=== PATIENT | female | born 1985 | race Caucasian/White ===

== ENCOUNTER 2017-06-28 22:18 | Emergency (ER) | payer MEDICAID, SELFPAY ==
[2017-06-28 22:21] VITALS: BP 161/91; PULSE 63; RESP 16; TEMP 36.8; O2SAT 98; BMI 46.2
--- NOTE | 2017-06-28 22:39 | HMH.EDBACK ---
ED Disposition Clinical Impression: Back pain Qualifiers: Back pain location: back pain in unspecified location Chronicity: chronic Back pain laterality: midline Qualified Code(s): M54.9 - Dorsalgia, unspecified; G89.29 - Other chronic pain Disposition: Home, Self-Care Condition on Discharge: Good Instructions: DI for Chronic Pain -- Adult, DI for Thoracic Back Pain Additional Instructions: Additional instructions for BACK PAIN: See your physician as soon as possible for further evaluation. Return immediately if back pain becomes intolerable, or if fever, numbness or weakness of your legs, loss of control of your bowels or bladder. Prescriptions: Methocarbamol [Robaxin 750mg Tab] 750 mg PO QIDP PRN #20 tab PRN Reason: Muscle Spasm Naproxen Sodium [Naproxen ER 500mg Tab] 500 mg PO BIDP PRN #20 tab PRN Reason: Moderate Pain - Critical Care Critical Care Time: No Attestation: On , the high probability of a clinically significant, sudden or life threatening deterioration of the following system(s) required my full and direct attention, intervention and personal management. The time I documented below is in addition to time spent performing reported procedures but includes the following listed in this critical care notation. Medical Decision Making Vital Signs: 06/28/17 22:21 Temperature 98.3 F Temperature Source Oral Pulse Rate [Right Brachial] 63 Respiratory Rate 16 Blood Pressure [Right Arm] 161/91 Blood Pressure Mean [Right Arm] 114 Blood Pressure Source [Right Arm] Automatic Cuff Blood Pressure Position [Right Arm] Sitting 02 Sat by Pulse Oximetry 98 Oxygen Delivery Method Room Air - Herb Inquiry Pt receiving controlled substance: No Herb was queried for this patient: Yes Reference #:: [id number] Comment: 10 rxs. last rx fioricet on 03/11/17 [facility] History I have reviewed the patient's past medical history: Yes - *Social History Smoking Status: Current every day smoker Tobacco Type: cigarettes # Packs/Day (cigarettes): 1 Alcohol Intake: never - Psychiatric History Expresses thoughts of harming self/others: None Suicide Plan Description: No Plan ROS Obtained: Yes All systems reviewed & no additional complaints - Constitutional Constitutional: Denies fever(s) - Gastrointestinal Gastrointestingal: Denies: as per HPI - Genitourinary Male Genitourinary: Denies difficulty urinating - Musculoskeletal Musculoskeletal: Reports back pain - Neurologic Neurologic: Denies numbness, Denies weakness Physical Exam - General General appearance: alert, in no apparent distress - Chest Chest inspection: Present: normal inspection - Respiratory Respiratory exam: Absent: respiratory distress - Cardiovascular Cardiovascular exam: Present: regular rate, normal rhythm - Back Exam Back exam: Present: normal inspection, tenderness (Entire thoracic spine) - Neurological Exam Neurological exam: Present: alert, normal gait. Absent: motor sensory deficit - Psychiatric Psychiatric exam: Present: normal affect, normal mood Back Pain HPI - General Chief Complaint: Back Pain/Injury Stated Complaint: back pain for two weeks Mode of Arrival: Ambulatory Limitations: No Limitations Description of Symptoms (Recalled from ER Triage Doc. by RN): UPPER BACK PAIN FOR 2 WEEKS - History of Present Illness HPI Narrative: She complains of back pain all the way from the base of her neck down to her lower lumbar area constantly for about 10 years. She says it started when her chest got bigger after being with her child. She has seen her primary care physician and chiropractors for. She has had more than one set of x-rays, the last about a year ago, which have been negative. She says she has never been on medications for it. She says the pain is worse for the past 2 weeks and she has not been able to get in to see her primary care provider. She is currently staying out of town here taking c
--- NOTE | 2017-06-28 22:43 | ED_ITS ---
ED Disposition Clinical Impression: Back pain Qualifiers: Back pain location: back pain in unspecified location Chronicity: chronic Back pain laterality: midline Qualified Code(s): M54.9 - Dorsalgia, unspecified; G89.29 - Other chronic pain Disposition: Home, Self-Care Condition on Discharge: Good Instructions: DI for Chronic Pain -- Adult, DI for Thoracic Back Pain Additional Instructions: Additional instructions for BACK PAIN: See your physician as soon as possible for further evaluation. Return immediately if back pain becomes intolerable, or if fever, numbness or weakness of your legs, loss of control of your bowels or bladder. Prescriptions: Methocarbamol [Robaxin 750mg Tab] 750 mg PO QIDP PRN #20 tab PRN Reason: Muscle Spasm Naproxen Sodium [Naproxen ER 500mg Tab] 500 mg PO BIDP PRN #20 tab PRN Reason: Moderate Pain - Critical Care Critical Care Time: No Attestation: On , the high probability of a clinically significant, sudden or life threatening deterioration of the following system(s) required my full and direct attention, intervention and personal management. The time I documented below is in addition to time spent performing reported procedures but includes the following listed in this critical care notation. Medical Decision Making Vital Signs: 06/28/17 22:21 Temperature 98.3 F Temperature Source Oral Pulse Rate [Right Brachial] 63 Respiratory Rate 16 Blood Pressure [Right Arm] 161/91 Blood Pressure Mean [Right Arm] 114 Blood Pressure Source [Right Arm] Automatic Cuff Blood Pressure Position [Right Arm] Sitting 02 Sat by Pulse Oximetry 98 Oxygen Delivery Method Room Air - Herb Inquiry Pt receiving controlled substance: No Herb was queried for this patient: Yes Reference #:: [id number] Comment: 10 rxs. last rx fioricet on 03/11/17 [facility] History I have reviewed the patient's past medical history: Yes - *Social History Smoking Status: Current every day smoker Tobacco Type: cigarettes # Packs/Day (cigarettes): 1 Alcohol Intake: never - Psychiatric History Expresses thoughts of harming self/others: None Suicide Plan Description: No Plan ROS Obtained: Yes All systems reviewed & no additional complaints - Constitutional Constitutional: Denies fever(s) - Gastrointestinal Gastrointestingal: Denies: as per HPI - Genitourinary Male Genitourinary: Denies difficulty urinating - Musculoskeletal Musculoskeletal: Reports back pain - Neurologic Neurologic: Denies numbness, Denies weakness Physical Exam - General General appearance: alert, in no apparent distress - Chest Chest inspection: Present: normal inspection - Respiratory Respiratory exam: Absent: respiratory distress - Cardiovascular Cardiovascular exam: Present: regular rate, normal rhythm - Back Exam Back exam: Present: normal inspection, tenderness (Entire thoracic spine) - Neurological Exam Neurological exam: Present: alert, normal gait. Absent: motor sensory deficit - Psychiatric Psychiatric exam: Present: normal affect, normal mood Back Pain HPI - General Chief Complaint: Back Pain/Injury Stated Complaint: back pain for two weeks Mode of Arrival: Ambulatory Limitations: No Limitations Description of Symptoms (Recalled from ER Triage Doc. by RN): UPPER BACK PAIN FOR 2 WEEKS - History of Present Illness HPI Narrative:
== END 2017-06-28 22:58 | disposition home or self-care (01) ==
PROVIDERS: Emergency Provider Emergency Medicine; Family Provider Family Medicine
DX: M54.9 Dorsalgia, unspecified (principal); G89.29 Other chronic pain; F17.210 Nicotine dependence, cigarettes, uncomplicated; Z91.040 Latex allergy status; I10 Essential (primary) hypertension; Z88.6 Allergy status to analgesic agent; F41.8 Other specified anxiety disorders; Z90.49 Acquired absence of other specified parts of digestive tract
CPT/HCPCS: 96372; 99282

== ENCOUNTER 2017-08-07 18:43 | Emergency (ER) | payer MEDICAID, SELFPAY ==
[2017-08-07 19:04] VITALS: BP 125/81; PULSE 113; RESP 20; TEMP 37.1; O2SAT 95; BMI 43.7
--- NOTE | 2017-08-07 19:18 | HMH.EDUTC ---
[facility] – [place] Disposition Clinical Impression: Otitis media Disposition: Home, Self-Care Condition on Discharge: Good Instructions: DI for Ear Pain-Adult, Sore Throat, DI for Otitis Media (Middle Ear Infection)-Child Additional Instructions: * Monitor Temp. Tylenol and/or Ibuprofen as needed. ER if fever is no less than 101 despite alternating Tylenol and Ibuprofen * Encourage fluids, water, Gatorade, powerade, pedialyte if /toddler/or child * Warm salt water gargles for throat irritation *Warm fluids *Sore throat lozenges *Sleep elevated *humidifier or vaporizer Lots of rest Increase fluids, water, Gatorade, powerade Follow up IMMEDIATELY for new or worsening of symptoms OR no noticeable improvement over the next 48-72 hours. 911 immediately for any life threatening symptoms such as chest pain or difficulty breathing Prescriptions: Brompheniramine/Pseudoephed/Dm [Bromfed DM Cough Syrup 5mL] 10 ml PO Q4HP PRN #350 ml PRN Reason: Cough Amoxicillin [Amoxicillin 500mg Cap] 500 mg PO TID #30 cap Referrals: Shaheed Shane [Primary Care Provider] - Forms: Work/School Release Time of Disposition: 19:46 Medical Decision Making - Medical Records Medical records reviewed: Yes: I reviewed the patient's medical records. Vital Signs: 08/07/17 19:04 Temperature 98.7 F Temperature Source Temporal Artery Scan Pulse Rate [Right] 113 H Respiratory Rate 20 Blood Pressure [Right Arm] 125/81 Blood Pressure Mean [Right Arm] 95 Blood Pressure Source [Right Arm] Automatic Cuff Blood Pressure Position [Right Arm] Sitting 02 Sat by Pulse Oximetry 95 Oxygen Delivery Method Room Air - Herb Inquiry Pt receiving controlled substance: No Herb was queried for this patient: No [facility] [place] HPI - General Stated complaint: Upper Resp Mode of Arrival: Ambulatory Source of Information: Patient Limitations: No Limitations Description of Symptoms (Recalled from Triage Doc. by RN): COUGH, CONGESTION, FEVER HEENT Symptoms (Recalled from RN notes): Yes Resp Symptoms (Recalled from RN notes): No Skin Symptoms (Recalled from RN notes): No MS Symptoms (Recalled from RN notes): No Functional Status (Recalled from RN notes): N - History of Present Illness Provider Complaint: Patient state that for last couple of days she has been having pain in left ear, cough, sore throat and noticed that she had a small sore like area on her right breast that she has been treating with tripple antibiotic ointment States that pain in left ear has continued to get worse and hurts down into her throat when she swallows - Related Data Previous Rx's Medication Instructions Recorded Methocarbamol [Robaxin 750mg Tab] 750 mg PO QIDP PRN #20 tab 06/28/17 Naproxen Sodium [Naproxen ER 500mg 500 mg PO BIDP PRN #20 tab 06/28/17 Tab] Amoxicillin [Amoxicillin 500mg 500 mg PO TID #30 cap 08/07/17 Cap] Brompheniramine/Pseudoephed/Dm 10 ml PO Q4HP PRN #350 ml 08/07/17 [Bromfed DM Cough Syrup 5mL] Allergies Allergy/AdvReac Type Severity Reaction Status Date / Time Fish Containing Products Allergy Severe S-SWELLS-OR Verified 06/28/17 22:27 [From SEAFOOD (F/D)] AL/THROAT latex [LATEX] Allergy Intermediate I-RASH Verified 06/28/17 22:27 morphine [MORPHINE] Allergy Intermediate I-ITCHING Verified 06/28/17 22:27 venom-honey bee Allergy Unknown I-RASH Verified 06/28/17 22:27 [BEE VENOM (HONEY BEE)] From SEAFOOD (F/D) Allergy Severe S-SWELLS-OR Uncoded 05/19/17 14:42 AL/THROAT - Worker's Comp Is this a Worker's Comp case?: No H History I have reviewed the patient's past medical history: Yes - Social History Smoking Status: Current every day smoker Tobacco Type: cigarettes # Packs/Day (cigarettes): 1 Alcohol Intake: never - Psychiatric History Expresses thoughts of harming self/others: None Suicide Plan Description: No Plan ROS Obtained: Yes All systems reviewed & no additional complaints - Constitutional Constitutional
[2017-08-07 19:43] VITALS: BP 122/80; PULSE 90; RESP 20; TEMP 37.1
== END 2017-08-07 19:49 | disposition home or self-care (01) ==
PROVIDERS: Emergency Provider Nurse Practitioner; Family Provider Family Medicine; PCP Family Medicine
DX: H66.92 Otitis media, unspecified, left ear (principal); F17.210 Nicotine dependence, cigarettes, uncomplicated; Z88.6 Allergy status to analgesic agent; Z91.040 Latex allergy status
CPT/HCPCS: 99202

== ENCOUNTER 2017-08-21 21:10 | Emergency (ER) | payer MEDICAID, SELFPAY ==
[2017-08-21 21:51] VITALS: BP 000/00; PULSE 109; RESP 20; TEMP 36.8; O2SAT 97; BMI 46.2
[2017-08-21 22:10] VITALS: BP 115/70; PULSE 102; RESP 20
[2017-08-21 23:35] VITALS: BP 120/81; PULSE 97; RESP 18; TEMP 36.6
== END 2017-08-21 23:35 | disposition left against medical advice (07) ==
LOC: ER 21:22
PROVIDERS: Emergency Provider Emergency Medicine; Family Provider Family Medicine; PCP Family Medicine
DX: Z53.29 Procedure and treatment not carried out because of patient's decision for other reasons (principal)
CPT/HCPCS: 99211; 99282

== ENCOUNTER 2018-10-26 20:26 | Emergency (ER) | payer OTHER, MEDICAID, SELFPAY ==
[2018-10-26 20:50] VITALS: BP 148/94; PULSE 89; RESP 18; TEMP 37.3; O2SAT 96; BMI 50.7
--- NOTE | 2018-10-26 21:32 | HMH.EDUTC ---
[facility] [place]ression: Anxiety Disposition: Home, Self-Care Condition on Discharge: Good Instructions: DI for Anxiety -- Adult, Anxiety Disorders, Generalized Anxiety Disorder, Anxiety and Panic Attacks (Alternative Therapy) Additional Instructions: Find a hobby to help you release anxiety, sometimes hobbies that require you to work with your hands and mind can help to control and prevent panic attacks *Take medication as prescribed for anxiety Manage or prevent a panic attack: Manage stress. Stress can trigger a panic attack. Ways to lower your stress level include yoga, meditation, and talking to someone about the stress in your life. Exercise as directed. Exercise can reduce stress and help you sleep better. Try to get at least 30 minutes of physical activity on most days of the week. Your healthcare provider can help you create an exercise plan. Set a sleep schedule. Too little sleep can increase anxiety. Go to bed at the same time each night and wake up at the same time each morning. Keep your room quiet and free from distractions, such as a television or computer. Eat a variety of healthy foods. Healthy foods include fruits, vegetables, low-fat dairy products, lean meats, fish, and beans. Limit sugar. Sugar can increase your symptoms. Do not have foods or drinks that contain caffeine. These include coffee, tea, soda, energy drinks, and chocolate. Caffeine can make anxiety worse or trigger a panic attack. Limit alcohol. You may think alcohol makes you calmer, but it is not a safe or effective way to control anxiety. Alcohol can increase anxiety if you drink large amounts or drink often. Ask your healthcare provider how much alcohol is safe for you to drink. A drink of alcohol is 12 ounces of beer, 5 ounces of wine, or 1? ounces of liquor. Do not smoke. Nicotine and other chemicals in cigarettes and cigars can increase anxiety. Ask your healthcare provider for information if you currently smoke and need help to quit. E-cigarettes or smokeless tobacco still contain nicotine. Talk to your healthcare provider before you use these products. Follow up with family doctor if you continue to have panic attacks not easily controlled with your prescribed medication Straight to ER if any chest pain, shortness of breath or any life threatening symptoms Referrals: Shaheed Shane [Primary Care Provider] - Medical Decision Making - Herb Inquiry Pt receiving controlled substance: No Herb was queried for this patient: No Vital Signs: 10/26/18 20:50 Temperature 99.1 F Temperature Source Oral Pulse Rate [Right Brachial] 89 Respiratory Rate 18 Blood Pressure [Right Arm] 148/94 H Blood Pressure Mean [Right Arm] 112 Blood Pressure Source [Right Arm] Automatic Cuff Blood Pressure Position [Right Arm] Sitting 02 Sat by Pulse Oximetry 96 Oxygen Delivery Method Room Air - Reevaluation(s) Time: 21:42 Reevaluation #1: Patient state that she took medication prior to arrival and no longer feeling like she is having a panic attack states that she is feeling better after arrival [facility] [place] - General Stated complaint: sOB, POSSIBLE PANIC ATTACK Time Seen by Provider: 10/26/18 21:32 Mode of Arrival: Family Vehicle Source of Information: Patient Limitations: No Limitations Description of Symptoms (Recalled from Triage Doc. by RN): c/o panic attacks that have worsened since 11:00 HEENT Symptoms (Recalled from RN notes): No Resp Symptoms (Recalled from RN notes): No Skin Symptoms (Recalled from RN notes): No MS Symptoms (Recalled from RN notes): No Functional Status (Recalled from RN notes): n/a - History of Present Illness Provider Complaint: Patient states that earlier today she had to take a bath and there was alot of people at her house and she had to shut the door State that it caused her to have anxiety attack State that she took her medication but it didn't help so this evening she felt a little better then felt like
--- NOTE | 2018-10-26 21:35 | ED_ITS ---
[facility] [place]: Anxiety Disposition: Home, Self-Care Condition on Discharge: Good Instructions: DI for Anxiety -- Adult, Anxiety Disorders, Generalized Anxiety Disorder, Anxiety and Panic Attacks (Alternative Therapy) Additional Instructions: Find a hobby to help you release anxiety, sometimes hobbies that require you to work with your hands and mind can help to control and prevent panic attacks *Take medication as prescribed for anxiety Manage or prevent a panic attack: * Manage stress. Stress can trigger a panic attack. Ways to lower your stress le helga include yoga, meditation, and talking to someone about the stress in your life. * Exercise as directed. Exercise can reduce stress and help you sleep better. Try to get at least 30 minutes of physical activity on most days of the week. Your healthcare provider can help you create an exercise plan. * Set a sleep schedule. Too little sleep can increase anxiety. Go to bed at the same time each night and wake up at the same time each morning. Keep your room quiet and free from distractions, such as a television or computer. * Eat a variety of healthy foods. Healthy foods include fruits, vegetables, low- fat dairy products, lean meats, fish, and beans. Limit sugar. Sugar can increase your symptoms. * Do not have foods or drinks that contain caffeine. These include coffee, tea, soda, energy drinks, and chocolate. Caffeine can make anxiety worse or trigger a panic attack. * Limit alcohol. You may think alcohol makes you calmer, but it is not a safe or effective way to control anxiety. Alcohol can increase anxiety if you drink large amounts or drink often. Ask your healthcare provider how much alcohol is safe for you to drink. A drink of alcohol is 12 ounces of beer, 5 ounces of wi ne, or 1? ounces of liquor. * Do not smoke. Nicotine and other chemicals in cigarettes and cigars can increase anxiety. Ask your healthcare provider for information if you currently smoke and need help to quit. E-cigarettes or smokeless tobacco still contain nicotine. Talk to your healthcare provider before you use these products. Follow up with family doctor if you continue to have panic attacks not easily controlled with your prescribed medication Straight to ER if any chest pain, shortness of breath or any life threatening symptoms Referrals: Shaheed Shane [Primary Care Provider] - Medical Decision Making - Herb Inquiry Pt receiving controlled substance: No Herb was queried for this patient: No Vital Signs: 10/26/18 20:50 Temperature 99.1 F Temperature Source Oral Pulse Rate [Right Brachial] 89 Respiratory Rate 18 Blood Pressure [Right Arm] 148/94 H Blood Pressure Mean [Right Arm] 112 Blood Pressure Source [Right Arm] Automatic Cuff Blood Pressure Position [Right Arm] Sitting 02 Sat by Pulse Oximetry 96 Oxygen Delivery Method Room Air - Reevaluation(s) Time: 21:42 Reevaluation #1: Patient state that she took medication prior to arrival and no longer feeling like she is having a panic attack states that she is feeling better after arrival [facility] [place] - General Stated complaint: sOB, POSSIBLE PANIC ATTACK Time Seen by Provider: 10/26/18 21:32 Mode of Arrival: Family Vehicle Source of Information: Patient Limitations: No Limitations Description of Symptoms (Recalled from Triage Doc. by RN): c/o panic attacks that have worsened since 11:00 HEENT Symptoms (Recalled from RN notes): No
[2018-10-26 21:38] VITALS: BP 133/89
[2018-10-26 21:39] VITALS: BP 133/89
[2018-10-26 21:44] VITALS: BP 133/89; PULSE 89; RESP 18; TEMP 37.3; O2SAT 96
== END 2018-10-26 21:45 | disposition home or self-care (01) ==
PROVIDERS: Emergency Provider Nurse Practitioner; PCP Family Medicine
DX: F41.0 Panic disorder [episodic paroxysmal anxiety] (principal); F17.210 Nicotine dependence, cigarettes, uncomplicated
CPT/HCPCS: 99202

== ENCOUNTER 2020-04-30 11:14 | Emergency (ER) | payer OTHER, MEDICAID, SELFPAY ==
--- NOTE | 2020-04-30 11:11 | ECG_ITS ---
APPROVED REPORT Exam: Resting ECG HR:133 bpm ECG Measurements Heart Rate 133 AXES AR 138 P 64 QRSd 76 QRS 18 QT 292 T 65 QTc 434 Conclusion Sinus tachycardia Cannot rule out Anterior infarct, age undetermined Abnormal ECG Electronically signed by : Rayray Pyle, 05/01/2020 07:31:35
[2020-04-30 11:14] VITALS: BP 160/99; PULSE 130; RESP 18; TEMP 36.7; O2SAT 97; BMI 42.3
--- NOTE | 2020-04-30 11:18 | XR_ITS ---
PROCEDURE: XR CHEST PORTABLE CLINICAL HISTORY: soa Shortness of air and chest tightness COMPARISON: CR [id number] XR chest portable from 05/27/2018 CR XR CHEST 2V from 01/14/2019 FINDINGS: The cardiomediastinal silhouette and pulmonary vascularity are within normal limits. The lungs are clear without infiltrates, suspicious nodules, or pleural effusions. No acute bony abnormalities. IMPRESSION: No acute findings. Dictated by: Curry Contreras MD 04/30/2020 12:42 Curry Contreras MD in [place] 04/30/2020 12:42
--- NOTE | 2020-04-30 11:19 | HMH.EDGENADL ---
ED Disposition Clinical Impression: Acute viral syndrome, Hypokalemia, Dehydration Cephalgia Qualifiers: Headache type: unspecified Headache chronicity pattern: acute headache Intractability: not intractable Qualified Code(s): R51.9 - Headache, unspecified Disposition: Home, Self-Care Condition on Discharge: Good Additional Instructions: You were seen on an emergency basis. It is very important that you follow up with your primary care provider and/or specialist as we discussed within 2 days. All labs and imaging were obtained and interpreted here to rule out life threatening emergencies, but your final results should be reviewed by your primary doctor at your follow up appointment. Please return to the emergency department if any of your symptoms worsen, or if they do not improve as we discussed. - Critical Care Critical Care Time: No Attestation: On , the high probability of a clinically significant, sudden or life threatening deterioration of the following system(s) required my full and direct attention, intervention and personal management. The time I documented below is in addition to time spent performing reported procedures but includes the following listed in this critical care notation. Medical Decision Making - Medical Records Medical records reviewed: Yes: I reviewed the patient's medical records. - Herb Inquiry Pt receiving controlled substance: No Vital Signs: 04/30/20 11:14 04/30/20 11:42 04/30/20 12:19 Temperature 98.0 F Temperature Source Oral Pulse Rate [Right Radial] 130 H 125 H 117 H Respiratory Rate 18 18 18 Blood Pressure [Right Arm] 160/99 H 157/93 H 144/96 H Blood Pressure Mean [Right Arm] 119 114 112 Blood Pressure Source [Right Arm] Automatic Cuff Blood Pressure Position [Right Arm] Sitting Sitting Sitting 02 Sat by Pulse Oximetry 97 94 L 94 L Oxygen Delivery Method Room Air Room Air Room Air 04/30/20 14:35 04/30/20 15:23 Temperature Temperature Source Pulse Rate [Right Radial] 108 H 100 H Respiratory Rate 18 20 Blood Pressure [Right Arm] 133/81 148/80 H Blood Pressure Mean [Right Arm] 98 102 Blood Pressure Source [Right Arm] Automatic Cuff Automatic Cuff Blood Pressure Position [Right Arm] Sitting Sitting 02 Sat by Pulse Oximetry 96 92 L Oxygen Delivery Method Room Air Room Air - Lab Data Lab Results 04/30/20 11:22: WBC 13.1 H, RBC 5.53 H, Hgb 17.0 H, Hct 50.5 H, MCV 91.3, MCH 30.8, MCHC 33.7, RDW 13.7, Plt Count 330, MPV 8.5, Neut % (Auto) 76.1, Lymph % (Auto) 15.7, [place] % (Auto) 5.4, Eos % (Auto) 1.7, Baso % (Auto) 1.0, Neut # (Auto) 10.0 H, Lymph # (Auto) 2.1, [place] # (Auto) 0.7, Eos # (Auto) 0.2, Baso # (Auto) 0.1 04/30/20 11:22: D-Dimer 0.52 04/30/20 11:22: Troponin I < 0.01 04/30/20 11:22: Serum HCG, Qual Negative 04/30/20 11:22: Sodium 141, Potassium 3.2 L, Chloride 105, Carbon Dioxide 26, Anion Gap 13.2, BUN 6 L, Creatinine 0.70, Estimated Creat Clear 108, Estimated GFR 95, Est GFR ( Amer) 115, Glucose 134 H, Calcium 9.2, Total Bilirubin 0.4, Direct Bilirubin 0.2, Conjugated Bilirubin 0.0, Indirect Bilirubin 0.2, Unconjugated Bilirubin 0.2, AST 51 H, ALT 48, Alkaline Phosphatase 98, Total Protein 7.7, Albumin 4.3 04/30/20 14:45: Troponin I < 0.01 Result diagrams: 04/30/20 11:22 04/30/20 11:22 Orders (Tests/Meds): ED MEDICATIONS Generic Name Dose Route Start Last Admin Trade Name Freq PRN Reason Stop Dose Admin Sodium Chloride 1,000 mls @ 999 mls/hr 04/30/20 15:00 04/30/20 15:00 Sod Chlor 0.9% 1000ml Bag IV 04/30/20 16:00 999 mls/hr .Q1H1M KARLOS Administration Discontinued Medications Generic Name Dose Route Start Last Admin Trade Name Freq PRN Reason Stop Dose Admin Dexamethasone Sodium Phosphate 10 mg 04/30/20 11:18 04/30/20 11:51 Dexamethasone 4mg/Ml 5ml Mdv IV 04/30/20 11:19 10 mg ONCE ONE Administration Diphenhydramine HCl 50 mg 04/30/20 11:19 04/30/20 11:51 Diphenhydramine 50mg/Ml Vial IV 04/30/
[2020-04-30 11:26] VITALS: BMI 42.3
[2020-04-30 11:41] LABS: Chloride 105 mmol/L (98-107)
[2020-04-30 11:42] VITALS: BP 157/93; PULSE 125; RESP 18; O2SAT 94
[2020-04-30 11:42] LABS: Potassium 3.2 mmoL/L (3.5-5.1); Sodium 141 mmol/L (136-145)
[2020-04-30 11:44] LABS: Alanine Aminotransferase 48 U/L (12-78); Anion Gap 13.2 mEq/L (5-15); Aspartate Amino Transferase 51 U/L (14-36); Bilirubin,Unconjugated 0.2 mg/dL (0.0-1.1); Blood Urea Nitrogen 6 mg/dl (7-17); Carbon Dioxide 26 mmol/L (22.0-30.0); Creatinine Clearance Estimated 108 mL/min (50-200); Estimated Glomerular Filt Rate 95 ml/min (>60); GFR (African American) 115 ML/MIN (>60)
[2020-04-30 11:45] LABS: Albumin Level 4.3 g/dl (3.5-5.0); Alkaline Phosphatase 98 U/L (38-126); Bilirubin,Direct 0.2 mg/dl (0.0-0.4); Bilirubin,Indirect 0.2 mg/dL (0.0-0.9); Bilirubin,Total 0.4 mg/dl (0.2-1.3); Calcium 9.2 mg/dl (8.4-10.2); Glucose 134 mg/dl (74-100); Total Protein,Serum 7.7 g/dl (6.3-8.2)
[2020-04-30 11:46] LABS: Basophils # 0.1 K/mm3 (0-0.2); Eosinophils # 0.2 K/mm3 (0.0-0.4); Eosinophils % 1.7 % (0.1-12.0); Hematocrit 50.5 % (37.0-47.0); Lymphocytes # 2.1 K/mm3 (0.7-4.5); Lymphocytes % 15.7 % (10-50); Mean Corpuscular HGB Conc 33.7 g/dL (31.8-35.4); Mean Corpuscular Hemoglobin 30.8 pg (27.0-31.2); Mean Corpuscular Volume 91.3 fl (81-99); Mean Platelet Volume 8.5 fl (7.4-10.4); Monocytes # 0.7 K/mm3 (0.1-1.0); Monocytes % 5.4 % (1.7-9.3); Neutrophils % 76.1 % (37.0-80.0); Platelet Count 330 K/mm3 (142-424); Red Blood Count 5.53 M/mm3 (4.20-5.40); Red Cell Distribution Width 13.7 % (11.5-17.5); White Blood Count 13.1 K/mm3 (4.8-10.8)
[2020-04-30 11:51] LABS: D-Dimer 0.52 ug/mL (0.15-8.0); HCG Qualitative, Serum Negative (Negative)
[2020-04-30 12:01] LABS: Troponin I < 0.01 ng/ml (0.00-0.034)
--- NOTE | 2020-04-30 12:02 | PC.NURSE ---
pt is very tearful and anxious at this time, pt reports she has had alot of life stressors recently. pt given warm blanket at this time, states no further needs, will continue to monitor.
[2020-04-30 12:19] VITALS: BP 144/96; PULSE 117; RESP 18; O2SAT 94
--- NOTE | 2020-04-30 13:18 | PC.NURSE ---
Family at bedside at this time.
--- NOTE | 2020-04-30 13:48 | PC.NURSE ---
pt had visitor that she had previously given permission for him to be in the room, staff heard visitors voice being raised towards pt, I entered room to check on pt, pt requested assistance to go to the restroom, I gave standby assistance to pt to the restroom, asked pt multiple times if she was okay, pt reported that she was. Staff again heard raised voice of visitor, as staff was entering room, visitor exited room to go to the restroom, staff checked on pt, asked it pt was still okay with visitor being presented, she stated no. When visitor exited the restroom staff asked visitor to please wait in his car. manager housekeeping made aware, also notified ER registration to no let this individual into the ER as a visitor for pt.
[2020-04-30 14:35] VITALS: BP 133/81; PULSE 108; RESP 18; O2SAT 96
[2020-04-30 15:18] LABS: Troponin I < 0.01 ng/ml (0.00-0.034)
[2020-04-30 15:23] VITALS: BP 148/80; PULSE 100; RESP 20; O2SAT 92
[2020-04-30 16:02] VITALS: BP 148/80; PULSE 100; RESP 18; TEMP 36.7; O2SAT 96
== END 2020-04-30 16:04 | disposition home or self-care (01) ==
PROVIDERS: Emergency Provider Physician Assistant; PCP Family Medicine
DX: B34.9 Viral infection, unspecified (principal); G43.909 Migraine, unspecified, not intractable, without status migrainosus; E86.0 Dehydration; E87.6 Hypokalemia; F17.210 Nicotine dependence, cigarettes, uncomplicated; Z79.899 Other long term (current) drug therapy
CPT/HCPCS: 71045; 80048; 80076; 84484; 84703; 85025; 85378; 93005; 96365; 96366; 96375; 99283

== ENCOUNTER 2020-05-08 15:19 | Emergency (ER) | payer OTHER, MEDICAID, SELFPAY ==
[2020-05-08 15:50] VITALS: BP 143/96; PULSE 111; RESP 18; TEMP 36.7; O2SAT 95; BMI 44.9
--- NOTE | 2020-05-08 15:53 | HMH.EDUTC ---
[facility] [place] Disposition Clinical Impression: Encounter for laboratory testing for COVID-19 virus Disposition: Home, Self-Care Condition on Discharge: Good Instructions: Preventing the Spread of Coronavirus Discharge Instructions Additional Instructions: *Monitor Temp, Over the counter Motrin or Tylenol as directed/as needed Tylenol every 4 hours and Motrin every 6 hours (as long as your family doctor has told you that you can take it) for fever or pain. and straight to ER if unable to lower temp less than 101.0 after medication given *Warm salt water gargles may help to soothe the throat *Throat Lozenges *Warm fluids like tea with honey may help to soothe the throat *Sleep elevated *Humidifier/Vaporizer Follow up IMMEDIATELY for new or worsening symptoms or no Noticeable improvement over the next 48-72 hours. 911 for difficulty breathing or swallowing You were tested for today for COVID19 your test result should be back in the next 24-48 hours, you may call to the [facility] to see if your test results are back in the next 48 hours [phone] [facility] hours are 9am-9pm You was given a handout with instructions for Self Quarantine and Self isolation for while you wait on test results and what to do if they are positive If you are positive the Health Dept will be contacting you also Referrals: Shaheed Shane [Primary Care Provider] - As needed Forms: Work/School Release Time of Disposition: 15:56 Medical Decision Making - Herb Inquiry Pt receiving controlled substance: No Herb was queried for this patient: No Vital Signs: 05/08/20 15:50 Temperature 98.1 F Temperature Source Oral Pulse Rate [Radial] 111 H Respiratory Rate 18 Blood Pressure [Right Arm] 143/96 H Blood Pressure Mean [Right Arm] 111 Blood Pressure Source [Right Arm] Automatic Cuff Blood Pressure Position [Right Arm] Sitting 02 Sat by Pulse Oximetry 95 Oxygen Delivery Method Room Air Orders (Tests/Meds): ORDERS Category Date Time Status Covid-19 Nasal PCR Sendout [facility] 05/08/20 15:20 Ordered [facility] [place] HPI - General Stated complaint: covid exposure sore throat cough Time Seen by Provider: 05/08/20 15:53 Mode of Arrival: Ambulatory Source of Information: Patient Limitations: No Limitations Description of Symptoms (Recalled from Triage Doc. by RN): WANTS COVID TEST, SORE THROAT, COUGH. HEENT Symptoms (Recalled from RN notes): Yes Resp Symptoms (Recalled from RN notes): No Skin Symptoms (Recalled from RN notes): No MS Symptoms (Recalled from RN notes): No Functional Status (Recalled from RN notes): WNL - History of Present Illness Provider Complaint: Patient state that she was recently around a neighbor that tested positive for COVID States that she has had a scratchy throat and little cough but typically has that around this time of year but wanted to get tested for COVID - Related Data Home Medications Medication Instructions Recorded Confirmed Butalb/Acetaminophen/Caffeine 1 tab PO NEEDED PRN 05/27/18 01/14/19 [Fiorcet Tablet] Metoprolol Succinate 50 mg PO BID 05/27/18 01/14/19 Sertraline HCl [Zoloft 100mg 200 mg PO DAILY 05/27/18 01/14/19 tablet] Topiramate 50 mg PO BID 05/27/18 01/14/19 clonazePAM [Clonazepam] 0.5 mg PO TID 05/27/18 01/14/19 raNITIdine HCl [Zantac] 150 mg PO DAILY 05/27/18 01/14/19 Buspirone HCl [Buspirone 15 mg 15 mg PO BID 01/14/19 01/14/19 Tablets] Diclofenac Sodium [Diclofenac 75mg 75 mg PO BID 01/14/19 01/14/19 Tab] Diphenoxylate HCl/Atropine 2.5 each PO DAILY 01/14/19 01/14/19 [Lomotil 2.5mg tablet] Previous Rx's Medication Instructions Recorded Amoxicillin/Potassium Clav 1 tab PO Q12H 10 Days #20 tab 02/07/19 [Augmentin 875-125 Tablet] Benzonatate [Tessalon Perle 100mg 100 mg PO TIDP PRN #30 cap 02/07/19 Cap] Brompheniramine/Pseudoephed/Dm 5 ml PO Q6HP PRN #240 syrup 02/07/19 [Bromfed Dm Cough Syrup] methylPREDNISolone [Medrol] 4 mg PO DIRECTED 6 Days #21 02/07/19
[2020-05-08 16:18] VITALS: BP 143/96; PULSE 111; RESP 18; TEMP 36.7; O2SAT 95
[2020-05-10 12:31] LABS: Covid-19 Nasal PCR Sendout Lex Not Detected
== END 2020-05-08 16:19 | disposition home or self-care (01) ==
PROVIDERS: Emergency Provider Nurse Practitioner; PCP Family Medicine
DX: Z20.828 Contact with and (suspected) exposure to other viral communicable diseases (principal); F17.210 Nicotine dependence, cigarettes, uncomplicated; Z88.5 Allergy status to narcotic agent; Z91.040 Latex allergy status
CPT/HCPCS: 99201; U0004

== ENCOUNTER 2020-09-10 12:23 | Emergency (ER) | payer OTHER, SELFPAY ==
[2020-09-10 12:40] VITALS: BP 116/71; PULSE 101; RESP 20; TEMP 37; O2SAT 96; BMI 45.4
--- NOTE | 2020-09-10 13:08 | HMH.EDUTC ---
[facility] [place] Disposition Clinical Impression: Sinusitis Qualifiers: Sinusitis location: unspecified location Chronicity: unspecified Qualified Code(s): J32.9 - Chronic sinusitis, unspecified Disposition: Home, Self-Care Condition on Discharge: Good Instructions: Sinusitis, DI for Sinusitis, Methylprednisolone, Azithromycin Additional Instructions: *Monitor Temp, Over the counter Motrin or Tylenol as directed/as needed Tylenol every 4 hours and Motrin every 6 hours (as long as your family doctor has told you that you can take it) for fever or pain. and straight to ER if unable to lower temp less than 101.0 after medication given *Warm salt water gargles may help to soothe the throat *Throat Lozenges *Warm fluids like tea with honey may help to soothe the throat *Sleep elevated *Humidifier/Vaporizer Your throat swab was sent for culture. Those results are typically sent to your primary care. Be sure to follow up in 2-3 days with your family doctor/primary care physician if no improvement so they can review those result and treat if necessary. If you don?t have a primary care doctor, I recommend you get one but in the mean time, you will have to return to a walk in clinic Follow up IMMEDIATELY for new or worsening symptoms or no Noticeable improvement over the next 48-72 hours. 911 for difficulty breathing or swallowing You were tested for today for COVID19 your test result should be back in the next 24-48 hours, you may call to the [facility] to see if your test results are back in the next 48 hours [phone] [facility] hours are 9am-9pm You was given a handout with instructions for Self Quarantine and Self isolation for while you wait on test results and what to do if they are positive If you are positive the Health Dept will be contacting you also Prescriptions: methylPREDNISolone [Medrol 4mg tab] 4 mg PO DIRECTED #21 tab Transmission Status: Received by [id number] Azithromycin [Z-Marky 250mg Tab] 250 mg PO DIRECTED #6 tab Transmission Status: Received by [id number] Referrals: Shaheed Shane [Primary Care Provider] - As needed Forms: Work/School Release Time of Disposition: 13:35 Medical Decision Making - Herb Inquiry Pt receiving controlled substance: No Herb was queried for this patient: No Vital Signs: 09/10/20 12:40 09/10/20 13:50 Temperature 98.6 F 98.6 F Temperature Source Oral Pulse Rate 101 H Pulse Rate [Right Brachial] 101 H Respiratory Rate 20 20 Blood Pressure 116/71 Blood Pressure [Right Arm] 116/71 Blood Pressure Mean [Right Arm] 86 Blood Pressure Source [Right Arm] Automatic Cuff Blood Pressure Position [Right Arm] Sitting 02 Sat by Pulse Oximetry 96 Oxygen Delivery Method Room Air - Lab Data Lab results reviewed: Yes: I reviewed the patient's lab results. Lab Results 09/10/20 12:53: Influenza Type A Ag Negative, Influenza Type B Ag Negative 09/10/20 12:53: Strep Scn Rapid Clinic Negative Orders (Tests/Meds): ORDERS Category Date Time Status Covid-19 Nasal PCR ([facility]) Routine Lab 09/10/20 13:30 Received Strep Screen Confirmation Stat Micro 09/10/20 12:53 Received Medical Decision Narrative: Patient reports that she has taken azithromycin and Medrol before without reaction or complications [facility] [place] HPI - General Stated complaint: congestion, cough Time Seen by Provider: 09/10/20 13:08 Mode of Arrival: Ambulatory Source of Information: Patient Limitations: No Limitations Description of Symptoms (Recalled from Triage Doc. by RN): PATIENT C/O CHOCOLATIER COUGH, CONGESTION, BODY ACHES, CHILLS, EARACHE, FEVER, AND SORE THROAT X 4 DAYS HEENT Symptoms (Recalled from RN notes): Yes Resp Symptoms (Recalled from RN notes): Yes Skin Symptoms (Recalled from RN notes): No MS Symptoms (Recalled from RN notes): No Functional Status (Recalled from RN notes): WNL - History of Present Illness Provider Complaint: Patient state that she has been having sinus problems
[2020-09-10 13:13] LABS: UTC Influenza A Antigen Negative (Negative); UTC Strep Screen (Rapid) Negative (Negative)
[2020-09-10 13:14] LABS: UTC Influenza B Antigen Negative (Negative)
[2020-09-10 13:50] VITALS: BP 116/71; PULSE 101; RESP 20; TEMP 37; O2SAT 96
--- NOTE | 2020-09-10 20:23 | PC.NURSE ---
PT NOTIFIED COVID TEST RESULTS
== END 2020-09-10 13:54 | disposition home or self-care (01) ==
PROVIDERS: Emergency Provider Nurse Practitioner; PCP Family Medicine
DX: U07.1 COVID-19 (principal); J32.9 Chronic sinusitis, unspecified; F41.8 Other specified anxiety disorders; G43.709 Chronic migraine without aura, not intractable, without status migrainosus; F17.210 Nicotine dependence, cigarettes, uncomplicated; Z88.5 Allergy status to narcotic agent; Z79.899 Other long term (current) drug therapy; I10 Essential (primary) hypertension
CPT/HCPCS: 87804; 87880; 99202; G0463; U0003

== ENCOUNTER 2020-11-02 20:21 | Emergency (ER) | payer OTHER, SELFPAY ==
[2020-11-02 20:30] VITALS: BP 115/60; PULSE 102; RESP 20; TEMP 36.7; O2SAT 96; BMI 47.0
--- NOTE | 2020-11-02 21:06 | HMH.EDUTC ---
[facility] [place] Clinical Impression: Strep throat Disposition: Home, Self-Care Condition on Discharge: Good Instructions: DI for Strep Throat Additional Instructions: Start antibiotics today be sure to take it as ordered with the full length of time although you should start feeling better in 24-48 hours. Change toothbrush and toothpaste 24-48 hours after starting antibiotics Tylenol or Motrin as needed for fever or pain Encourage fluids, water, Gatorade, Powerade, try cold fluids, popsicles, ice cream will make it feel better You are contagious for 24 hours. Avoid kissing anyone, no eating or drinking after anyone. You are contagious. Follow-up the ER for new or worsening symptoms or no noticeable improvement over the next 24-48 hours. Follow-up with PCP this week. Prescriptions: Azithromycin [Zithromax 250mg tab] 250 mg PO DIRECTED #4 tab Transmission Status: Pending to [id number] Referrals: Shaheed Shane [Primary Care Provider] - Time of Disposition: 21:08 Medical Decision Making - Herb Inquiry Pt receiving controlled substance: No [facility] [place] - General Chief complaint: [facility] Stated complaint: sore throat cough fever Time Seen by Provider: 11/02/20 21:06 Mode of Arrival: Ambulatory Source of Information: Patient Limitations: No Limitations - History of Present Illness Provider Complaint: 34 yr old female presnts for sore throat, ear pain, and pain with swallowing for 3 days - Related Data Home Medications Medication Instructions Recorded Confirmed Butalb/Acetaminophen/Caffeine 1 tab PO NEEDED PRN 05/27/18 01/14/19 [Fiorcet Tablet] Metoprolol Succinate 50 mg PO BID 05/27/18 01/14/19 Sertraline HCl [Zoloft 100mg 200 mg PO DAILY 05/27/18 01/14/19 tablet] Topiramate 50 mg PO BID 05/27/18 01/14/19 clonazePAM [Clonazepam] 0.5 mg PO TID 05/27/18 01/14/19 raNITIdine HCl [Zantac] 150 mg PO DAILY 05/27/18 01/14/19 Buspirone HCl [Buspirone 15 mg 15 mg PO BID 01/14/19 01/14/19 Tablets] Diclofenac Sodium [Diclofenac 75mg 75 mg PO BID 01/14/19 01/14/19 Tab] Diphenoxylate HCl/Atropine 2.5 each PO DAILY 01/14/19 01/14/19 [Lomotil 2.5mg tablet] Previous Rx's Medication Instructions Recorded Amoxicillin/Potassium Clav 1 tab PO Q12H 10 Days #20 tab 02/07/19 [Augmentin 875-125 Tablet] Benzonatate [Tessalon Perle 100mg 100 mg PO TIDP PRN #30 cap 02/07/19 Cap] Brompheniramine/Pseudoephed/Dm 5 ml PO Q6HP PRN #240 syrup 02/07/19 [Bromfed Dm Cough Syrup] methylPREDNISolone [Medrol] 4 mg PO DIRECTED 6 Days #21 02/07/19 tab.ds.pk Mupirocin [Bactroban 2% Ointment 1 applicatio TP BID 10 Days #1 tube 03/18/19 22gm tube] Azithromycin [Z-Marky 250mg Tab*] 250 mg PO UD DOSE PK #6 tab 05/17/19 Ondansetron [Zofran 4mg ODT] 4 mg PO Q8HP PRN #10 tab.rapdis 05/17/19 Oseltamivir Phosphate [Tamiflu 75 mg PO BID #10 cap 05/17/19 75mg Capsule] Azithromycin [Z-Marky 250mg Tab] 250 mg PO DIRECTED #6 tab 09/10/20 methylPREDNISolone [Medrol 4mg 4 mg PO DIRECTED #21 tab 09/10/20 tab] Azithromycin [Zithromax 250mg 250 mg PO DIRECTED #4 tab 11/02/20 tab] Allergies Allergy/AdvReac Type Severity Reaction Status Date / Time Fish Containing Products Allergy Severe S-SWELLS-OR Verified 05/26/19 20:04 [From SEAFOOD (F/D)] AL/THROAT latex [LATEX] Allergy Intermediate I-RASH Verified 05/26/19 20:04 morphine [MORPHINE] Allergy Intermediate I-ITCHING Verified 05/26/19 20:04 venom-honey bee Allergy Unknown I-RASH Verified 05/26/19 20:04 [BEE VENOM (HONEY BEE)] adhesive tape Allergy Verified 05/26/19 20:04 From SEAFOOD (F/D) Allergy Severe S-SWELLS-OR Uncoded 05/19/17 14:42 AL/THROAT [facility] History - Hepatitis A Screen Attestation statement:: This patient has been screened for Hepatitis A risk factors. I have reviewed the patient's past medical history: Yes Medical History: Denies:: Cancer, Diabetes Mellitus Ty
[2020-11-02 21:12] VITALS: BP 115/60; PULSE 102; RESP 20; TEMP 36.7; O2SAT 98
[2020-11-02 21:46] LABS: UTC Strep Screen (Rapid) Positive (Negative)
== END 2020-11-02 21:21 | disposition home or self-care (01) ==
PROVIDERS: Emergency Provider Nurse Practitioner Family; PCP Family Medicine
DX: J02.0 Streptococcal pharyngitis (principal); F17.210 Nicotine dependence, cigarettes, uncomplicated
CPT/HCPCS: 87880; 99202; G0463